=== PATIENT | female | born 1950 | race Native Hawaiian/Other Pacific Islander ===

== ENCOUNTER 2016-09-09 10:09 | Outpatient (CLI) | payer OTHER | END 2016-09-09 11:15 | disposition home or self-care (01) | LOC: LABW 10:09 | DX: B35.1 Tinea unguium (principal) | CPT/HCPCS: 36415; 84450; 84460 ==

== ENCOUNTER 2016-10-30 13:46 | Outpatient (CLI) | payer OTHER | END 2016-10-30 14:50 | disposition home or self-care (01) | LOC: LABW 13:46 | DX: B35.1 Tinea unguium (principal) | CPT/HCPCS: 36415; 84450; 84460 ==